=== PATIENT | male | born 1985 | race Caucasian/White ===

== ENCOUNTER 2019-10-01 23:39 | Inpatient (IN) | payer BC ==
[~2019-10-01] VITALS: Ht 190.5 cm; Wt 118.2 kg
[2019-10-01] MEDS ORDERED: normal saline 1000ml 1,000 ML IV ONE (23:55)
[2019-10-02] VITALS (19 sets, daily range): BP systolic 122–160; BP diastolic 58–101
[2019-10-02] MEDS ORDERED: NO HOME MEDS (00:19)
[2019-10-02 00:40] LABS: ALANINE AMINOTRANSFERASE 42 U/L (12-78); ALBUMIN 3.4 G/DL (3.4-5.0); ALBUMIN/GLOBULIN RATIO 1.1 (1.1-1.5); ALKALINE PHOSPHATASE 47 IU/L (46-116); ANION GAP 9 (8-16); ASPARTATE AMINO TRANSFERASE 19 U/L (10-37); BILIRUBIN,TOTAL 0.5 MG/DL (0.1-1.0); BLOOD UREA NITROGEN 13 MG/DL (7-18); BUN/CREATININE RATIO 12.1 (5.4-32.0); CALCIUM 7.9 MG/DL (8.5-10.1); CHLORIDE 106 MMOL/L (99-107); CREATININE 1.07 MG/DL (0.60-1.10); GLUCOSE 114 MG/DL (70-104); POTASSIUM 3.9 MMOL/L (3.5-5.1); SODIUM 139 MMOL/L (135-145); TOTAL CARBON DIOXIDE 23.8 MMOL/L (24-32); TOTAL PROTEIN 6.4 G/DL (6.4-8.2); eGFR 80 ML/MIN
[2019-10-02 00:46] LABS: BASOPHILS # (AUTO) 0.1 X10'3 (0-0.2); BASOPHILS % (AUTO) 0.4 % (0-1); EOSINOPHILS % (AUTO) 0.1 % (0-6); HEMATOCRIT 37.3 % (42.0-52.0); HEMOGLOBIN 12.8 g/dl (14.0-17.9); LYMPHOCYTES # (AUTO) 1.8 X10'3 (1.1-4.8); LYMPHOCYTES % (AUTO) 10.4 % (21-51); MEAN CORPUSCULAR HEMOGLOBIN 30.7 PG (27.0-31.0); MEAN CORPUSCULAR HGB CONC 34.3 g/dL (33.0-36.5); MEAN CORPUSCULAR VOLUME 89.5 FL (78-98); MEAN PLATELET VOLUME 8.6 FL (7.4-10.4); MONOCYTES # (AUTO) 1.1 X10'3 (0-0.9); MONOCYTES % (AUTO) 6.4 % (2-12); NEUTROPHILS # (AUTO) 14.6 X10'3 (1.8-7.7); NEUTROPHILS % (AUTO) 82.7 % (42-75); PLATELET COUNT 217 X10'3 (140-440); RED BLOOD COUNT 4.16 X10'6 (4.70-6.10); RED CELL DISTRIBUTION WIDTH 12.9 % (11.5-14.5); WHITE BLOOD COUNT 17.6 X10'3 (4.5-11.0)
[2019-10-02] MEDS ORDERED: magnesium 2GM in 50ml NS 50 ML IV PRN (02:25)
[2019-10-02] MEDS ORDERED: ondansetron/PF 4mg/2ml inj IV PRN ×2 (02:25→09:20)
[2019-10-02] MEDS ORDERED: potassium CL 10mEq/100ml bag 100 ML IV PRN ×2 (02:25)
[2019-10-02] MEDS ORDERED: acetaminophen 325mg tablet PO PRN (02:25)
[2019-10-02] MEDS ORDERED: potassium Cl 20 mEq SR tablet PO PRN ×2 (02:25)
[2019-10-02] MEDS ORDERED: magnesium Cl slow-release 64mg tablet PO PRN (02:25)
[2019-10-02] MEDS ORDERED: magnesium 4gm in 100ml NS 100 ML IV PRN (02:25)
[2019-10-02 03:37] LABS: CLARITY,URINE CLEAR (Clear); COLOR,URINE YELLOW (Yellow); GLUCOSE, URINE NEGATIVE (Neg); KETONES,URINE NEGATIVE (Neg); LEUKOCYTE ESTERASE ,URINE NEGATIVE (Neg); NITRITES, URINE NEGATIVE (Neg); OCCULT BLOOD,URINE NEGATIVE (Neg); PROTEIN,URINE NEGATIVE (Neg); UROBILINOGEN,URINE 0.2 E.U/dL (0.2-1.0)
[2019-10-02 03:38] LABS: UA COLLECTION TYPE FOLEY CATH
[2019-10-02] MEDS: normal saline 1000ml 1,000 ML IV SCH ×3 (03:45→18:29)
[2019-10-02] MEDS: morphine 2 MG/ML inj. syringe IV PRN ×3 (03:58→12:25)
--- NOTE | 2019-10-02 06:19 | NUR ---
Report given to MADHAV Maurer
--- NOTE | 2019-10-02 06:35 | NUR ---
Patient in room [facility]. I have received report from Gus COREY and had the opportunity to ask questions and assume patient care.
[2019-10-02] MEDS: famotidine/PF 10 mg/ml inj IV SCH (07:19)
[2019-10-02] MEDS ORDERED: CefTRIAXone/D5W-Rocephin 1gm 50 ML IV SCH (08:00)
[2019-10-02] MEDS: K and/or MAG REPLACEMENT MC SCH (08:00)
--- NOTE | 2019-10-02 08:50 | NUR ---
Report given to the OR charge nurse via telephone call
[2019-10-02] MEDS ORDERED: midazolam 2 mg/2 ml injection ONE (09:07)
[2019-10-02] MEDS ORDERED: fentaNYL /PF 50mcg/ml 5ml ampule ONE (09:07)
[2019-10-02] MEDS ORDERED: BUPIVAcaine/PF 2.5 mg/ml (0.25%) 30ml vial ONE (09:16)
[2019-10-02] MEDS ORDERED: ringers solution, lacted 1,000 ML IV SCH (09:18)
[2019-10-02] MEDS ORDERED: meperidine/PF 25mg/ml syringe IV PRN ×3 (09:20)
[2019-10-02] MEDS ORDERED: morphine 4 MG/ML inj SYRINge IV PRN ×2 (09:20)
[2019-10-02] MEDS ORDERED: proCHLORperazine 10 MG/2 ml inj IV PRN (09:20)
[2019-10-02] MEDS ORDERED: dexamethasone sod phosphate 10mg/ml inj ONE (09:35)
[2019-10-02] MEDS ORDERED: sevoflurane 250ml liquid IH ONE (09:35)
[2019-10-02] MEDS ORDERED: levoFLOXACIN-Levaquin 500mg/D5 100 ML IV ONE (10:05)
[2019-10-02] MEDS ORDERED: metroNIDAZOLE-Flagyl 500mg/NS 100ml IVPB IV ONE (10:05)
[2019-10-02] MEDS: dextrose 5%-lactated ringers 1,000 ML IV SCH ×3 (10:45→23:08)
--- NOTE | 2019-10-02 10:45 | NUR ---
Received from OR via , accompanied by Anesthesiologist DR PATIÑO and report given by Anesthesiolgist. PT IS SLEEPING AND NOT RESPONDING TO STIMULATION, SKIN WARM AND PINK, NO C/O PAIN, 2 BA'S ON THE ABD, FRANCES DRAIN WITH SEROSANQ FLUID, BURRIS TO GRAVITY CLEAR YELLOW, SCD'S, PIV LEFT WRIST 20G WITH LR 100.
--- NOTE | 2019-10-02 11:00 | NUR ---
PT RESPONDING TO VOICE AND FOLLOWING COMMANDS TO MOVE EXT X 4. NO C/O PAIN.
[2019-10-02] MEDS ORDERED: LIDOcaine 2% (20mg/ml) 5ml vial ONE (11:23)
[2019-10-02] MEDS ORDERED: propofol inj 20 ML IV ONE (11:23)
[2019-10-02] MEDS ORDERED: ondansetron/PF 4mg/2ml inj ONE (11:23)
[2019-10-02] MEDS ORDERED: succinylcholine 20mg/ml inj IV ONE (11:23)
[2019-10-02] MEDS ORDERED: neostigmine methylsulfate 1 MG/ML 10ml vial ONE (11:23)
[2019-10-02] MEDS ORDERED: rocuronium 10mg/ml inj IV ONE (11:23)
[2019-10-02] MEDS ORDERED: glycopyrrolate 0.2mg/ml inj ONE (11:23)
--- NOTE | 2019-10-02 11:25 | NUR ---
Report called to receiving nurse. Transferred via [facility]ED Belongings . Special Issues communicated to receiving nurse WALKER COREY. PT IS AWAKE, ALERT, MOVING EXT X 4, PIV PATENT, FRANCES AND BURRIS DRAINED PRIOR TO TRANSFER, NO C/O PAIN, BA'S ON ABD CD, SCD'S, NO FAMILY IN BUILDING. PT MEETS DISCHARGE CRITERIA.
--- NOTE | 2019-10-02 14:24 | NUR ---
Patient tolerated the clear liquid lunch tray so far. Patient's at bedside with their 4 month old baby
[2019-10-02] MEDS: metroNIDAZOLE-Flagyl 500mg/NS 100 ML IV SCH ×2 (16:17→23:15)
[2019-10-02] MEDS: HYDROmorphone 1 mg/ml syringe IV PRN ×2 (16:20→20:47)
--- NOTE | 2019-10-02 18:21 | NUR ---
Problems reprioritized. Patient report given, questions answered & plan of care reviewed with Renay COREY.
--- NOTE | 2019-10-02 21:43 | NUR ---
Patient in room [facility]. I have received report from MADHAV Maurer and had the opportunity to ask questions and assume patient care. Addendum: 10/02/19 at 2144 by Renay Vazquez RN Amended: Links added.
[2019-10-03] MEDS: normal saline 1000ml 1,000 ML IV SCH ×4 (01:09→23:12)
[2019-10-03] MEDS: dextrose 5%-lactated ringers 1,000 ML IV SCH (05:44)
--- NOTE | 2019-10-03 06:17 | NUR ---
Problems reprioritized. Patient report given, questions answered & plan of care reviewed with nila Mcdonough. Addendum: 10/03/19 at 0618 by Renay Vazquez RN Amended: Links added.
[2019-10-03 06:25] LABS: ALBUMIN 3.1 G/DL (3.4-5.0); ANION GAP 7 (8-16); BLOOD UREA NITROGEN 12 MG/DL (7-18); BUN/CREATININE RATIO 11.9 (5.4-32.0); CALCIUM 8.5 MG/DL (8.5-10.1); CHLORIDE 106 MMOL/L (99-107); CREATININE 1.01 MG/DL (0.60-1.10); GLUCOSE 99 MG/DL (70-104); SODIUM 140 MMOL/L (135-145); TOTAL CARBON DIOXIDE 26.7 MMOL/L (24-32); eGFR 85 ML/MIN
[2019-10-03 06:41] LABS: BASOPHILS % (AUTO) 0.2 % (0-1); EOSINOPHILS % (AUTO) 0.2 % (0-6); HEMATOCRIT 35.7 % (42.0-52.0); LYMPHOCYTES # (AUTO) 2.4 X10'3 (1.1-4.8); LYMPHOCYTES % (AUTO) 17.2 % (21-51); MEAN CORPUSCULAR HEMOGLOBIN 30.6 PG (27.0-31.0); MEAN CORPUSCULAR HGB CONC 33.6 g/dL (33.0-36.5); MEAN CORPUSCULAR VOLUME 91.1 FL (78-98); MEAN PLATELET VOLUME 8.8 FL (7.4-10.4); MONOCYTES % (AUTO) 7.3 % (2-12); NEUTROPHILS # (AUTO) 10.5 X10'3 (1.8-7.7); NEUTROPHILS % (AUTO) 75.1 % (42-75); PLATELET COUNT 206 X10'3 (140-440); RED BLOOD COUNT 3.92 X10'6 (4.70-6.10); RED CELL DISTRIBUTION WIDTH 13.2 % (11.5-14.5)
[2019-10-03 08:04] VITALS: BP 133/73
[2019-10-03] MEDS: famotidine/PF 10 mg/ml inj IV SCH (08:20)
[2019-10-03] MEDS: levoFLOXACIN-Levaquin 750MG/D5 150 ML IV SCH (08:20)
[2019-10-03] MEDS: metroNIDAZOLE-Flagyl 500mg/NS 100 ML IV SCH ×3 (08:20→23:12)
[2019-10-03] MEDS: HYDROcodone/acetaminophen 10/325mg tab PO PRN ×4 (08:21→20:45)
[2019-10-03] MEDS: K and/or MAG REPLACEMENT MC SCH (08:21)
--- NOTE | 2019-10-03 08:22 | NUR ---
spoke to md adler about f/c and two different fluidorders. stated ok to dc f/c but that she will address fluid order when she rounds and that it is okto continute to use what was used last night. [employer]aware as well.
[2019-10-03 12:53] VITALS: BP 130/79
--- NOTE | 2019-10-03 17:11 | NUR ---
PT. EAGER TO GO HOME. HAS REQUESTED THREE TIMES FOR ME TO CONTACT THE SURGEON FOR DISCHARGE ORDERS. CONCERNED ABOUT HIS DRIVING HOME IN THE DARK WITH THEIR CHILDREN. SPOKE WITH CHARGE NURSE AND SHE DISAGREES WITH CALLING SURGEON AT THIS TIME. SPOKE WITH PT. AND RECOMMENDED THE DRIVE HOME AT THIS TIME, AND IF THE PT. IS DISCHARGED TONIGHT HE CAN STAY THE NIGHT UNTIL SHE CAN COME BACK IN THE MORNING. PT. AGREEABLE AT THIS TIME.
--- NOTE | 2019-10-03 18:09 | NUR ---
Problems reprioritized. Patient report given, questions answered & plan of care reviewed with PAULINA COREY.
[2019-10-03 20:00] VITALS: BP 132/79
[2019-10-03] MEDS: lactobacillus rhamnosus 10,000 MMU CELLS/CAPSULE PO SCH (20:45)
--- NOTE | 2019-10-03 21:10 | NUR ---
Patient in room [facility]. I have received report from MADHAV Brown and had the opportunity to ask questions and assume patient care. Addendum: 10/03/19 at 2111 by Renay Vazquez RN Amended: Links added.
[2019-10-04 00:40] VITALS: BP 123/75
[2019-10-04] MEDS: HYDROcodone/acetaminophen 10/325mg tab PO PRN (03:58)
[2019-10-04 04:58] LABS: BASOPHILS # (AUTO) 0.1 X10'3 (0-0.2); BASOPHILS % (AUTO) 0.6 % (0-1); EOSINOPHILS # (AUTO) 0.2 X10'3 (0-0.9); EOSINOPHILS % (AUTO) 2.2 % (0-6); HEMATOCRIT 35.5 % (42.0-52.0); HEMOGLOBIN 12.3 g/dl (14.0-17.9); LYMPHOCYTES # (AUTO) 3.4 X10'3 (1.1-4.8); LYMPHOCYTES % (AUTO) 34.4 % (21-51); MEAN CORPUSCULAR HEMOGLOBIN 31.1 PG (27.0-31.0); MEAN CORPUSCULAR HGB CONC 34.5 g/dL (33.0-36.5); MEAN CORPUSCULAR VOLUME 90.1 FL (78-98); MEAN PLATELET VOLUME 8.4 FL (7.4-10.4); MONOCYTES # (AUTO) 0.8 X10'3 (0-0.9); MONOCYTES % (AUTO) 8.1 % (2-12); NEUTROPHILS # (AUTO) 5.5 X10'3 (1.8-7.7); NEUTROPHILS % (AUTO) 54.7 % (42-75); PLATELET COUNT 210 X10'3 (140-440); RED BLOOD COUNT 3.94 X10'6 (4.70-6.10); RED CELL DISTRIBUTION WIDTH 13.1 % (11.5-14.5)
[2019-10-04 05:11] LABS: ANION GAP 6 (8-16); BLOOD UREA NITROGEN 13 MG/DL (7-18); BUN/CREATININE RATIO 12.4 (5.4-32.0); CALCIUM 8.6 MG/DL (8.5-10.1); CHLORIDE 106 MMOL/L (99-107); CREATININE 1.05 MG/DL (0.60-1.10); GLUCOSE 92 MG/DL (70-104); MAGNESIUM 1.9 MG/DL (1.5-2.4); POTASSIUM 4.1 MMOL/L (3.5-5.1); SODIUM 138 MMOL/L (135-145); eGFR 81 ML/MIN
--- NOTE | 2019-10-04 06:11 | NUR ---
Problems reprioritized. Patient report given, questions answered & plan of care reviewed with MADHAV Sweeney. Addendum: 10/04/19 at 0611 by Renay Vazquez RN Amended: Links added.
--- NOTE | 2019-10-04 06:12 | NUR ---
Patient in room [facility]. I have received report from MADHAV Niño and had the opportunity to ask questions and assume patient care.
[2019-10-04 07:35] VITALS: BP 129/72
[2019-10-04] MEDS: K and/or MAG REPLACEMENT MC SCH (08:00)
[2019-10-04] MEDS: lactobacillus rhamnosus 10,000 MMU CELLS/CAPSULE PO SCH (08:08)
[2019-10-04] MEDS: famotidine/PF 10 mg/ml inj IV SCH (08:08)
[2019-10-04] MEDS: metroNIDAZOLE-Flagyl 500mg/NS 100 ML IV SCH (08:08)
[2019-10-04] MEDS: levoFLOXACIN-Levaquin 750MG/D5 150 ML IV SCH (09:26)
[2019-10-04 11:45] VITALS: BP 128/77
== END 2019-10-04 14:40 | disposition home or self-care (01) | DRG 343 ==
LOC: ER 23:40 → ED HOLD 10-02 02:26 → SUR 3N 10-02 03:30
PROVIDERS: ADMIT Internal Medicine; ATTEND Internal Medicine
PROC: 0DTJ4ZZ Resection of Appendix, Percutaneous Endoscopic Approach (ICD-10-PCS; principal; 2019-10-02 09:35)
DX: K35.80 Unspecified acute appendicitis (principal); F17.210 Nicotine dependence, cigarettes, uncomplicated; D72.829 Elevated white blood cell count, unspecified; Z79.899 Other long term (current) drug therapy
CPT/HCPCS: 96360; 99285; Z7506; Z7508; 36415; 80048; 80053; 81003; 83735; 85025; 85610; 87081; 93005; A4215; A4618; A6402; A7000; G0378; J0330; J1100; J1170; J1956; J2001; J2250; J2270; J2405; J2704; J2710; J3010; J3490; J7030; J7120; J7121